=== PATIENT | male | born 1955 | race African-American/Black ===

== ENCOUNTER → 2016-11-28 | Outpatient (CLI) | payer OTHER ==
--- NOTE | 2016-11-28 17:18 | DX ---
Acromioclavicular joints 2 views History: left shoulder plain. Findings: The right acromioclavicular joint is slightly wider than the left, with no subluxation on w eight-bearing view. No fracture. Impression: Normal.
--- NOTE | 2016-11-28 17:19 | DX ---
Left Shoulder, 3 Views Clinical Indications: Pain in left shoulder. Findings: The humeral head is normally located in the glenoid fossa. No fracture or dislocation. N o evidence of neoplasm, necrosis, or arthritis. No calcifications of soft tissues. Impression: Normal.
== END ==
LOC: BRMIMAGING 16:29
DX: M25.512 Pain in left shoulder (principal)
CPT/HCPCS: 73030-PO; 73050-PO